=== PATIENT | female | born 1995 | race Asian ===

== ENCOUNTER 2022-01-09 05:22 | Emergency (ER) | payer BC ==
[2022-01-09] MEDS ORDERED: Diazepam 5 MG TAB ONE (05:42)
[2022-01-09] MEDS ORDERED: Meclizine HCl 25 MG TAB ONE (06:35)
== END 2022-01-09 10:52 | disposition home or self-care (01) ==
LOC: CSHERS 05:22
DX: R42 Dizziness and giddiness (principal); R11.2 Nausea with vomiting, unspecified
CPT/HCPCS: 36416; 99284